=== PATIENT | male | born 1960 | race Hispanic/Latino ===

== ENCOUNTER 2018-02-01 20:57 | Emergency (ER) | payer OTHER ==
[2018-02-01 21:03] VITALS: RESP 16; TEMP 97.7; O2SAT 97
--- NOTE | 2018-02-01 21:17 | ED PDOC ---
Upper Extremity Pain/Injury Time Seen by Provider: 02/01/18 21:04 Chief Complaint (Nursing): Upper Extremity Problem/Injury Chief Complaint (Provider): right shoulder pain History Per: Patient History/Exam Limitations: no limitations Onset/Duration Of Symptoms: Hrs (18:00 today) Current Symptoms Are (Timing): Still Present Exacerbating Factor(s): Movement Additional Complaint(s): Casey Lama is a 57 year old male, with a past medical history of pre- diabetes, who presents to the emergency department complaining of a sudden right shoulder pain onset at 18:00 today. Patient states he was shoveling snow from the back of his pickup truck when the pain suddenly started. He rates the pain a 3/10 at rest but states it worsens with movement to a 10/10. He denies any previous injuries or surgeries to shoulder. He took x2 Aleve for pain, last dose x40 min prior to arrival. Patient is right hand dominant. He denies any numbness or tingling, chest pain, shortness of breath, nausea, vomit, diarrhea, abdominal pain, fever or chills. No further medical complaints. PMD: In [place]. Past Medical History Reviewed: Historical Data, Nursing Documentation, Vital Signs Vital Signs: Last Vital Signs Temp 97.7 F 02/01/18 21:00 Pulse 73 02/01/18 21:00 Resp 16 02/01/18 21:00 BP 166/90 H 02/01/18 21:00 Pulse Ox 97 02/01/18 21:00 - Medical History PMH: Diabetes (pre) - Surgical History Surgical History: No Surg Hx - Family History Family History: States: Unknown Family Hx - Social History Current smoker - smoking cessation education provided: Yes (Cigars daily) Alcohol: Social Drugs: Denies - Home Medications Home Medications: Ambulatory Orders Medication Instructions Recorded Acetaminophen [Acetaminophen 8 650 mg PO Q8 PRN #21 tablet.er 02/01/18 Hour] Cyclobenzaprine [Cyclobenzaprine 10 mg PO Q8 PRN #12 tab 02/01/18 HCl] Meloxicam [Mobic] 15 mg PO DAILY PRN #10 tab 02/01/18 - Allergies Allergies/Adverse Reactions: Allergies Allergy/AdvReac Type Severity Reaction Status Date / Time No Known Allergies Allergy Verified 02/01/18 21:00 Review of Systems ROS Statement: Except As Marked, All Systems Reviewed And Found Negative Constitutional: Negative for: Fever, Chills Cardiovascular: Negative for: Chest Pain Respiratory: Negative for: Shortness of Breath Gastrointestinal: Negative for: Nausea, Vomiting, Abdominal Pain, Diarrhea Musculoskeletal: Positive for: Shoulder Pain (right) Physical Exam - Reviewed Nursing Documentation Reviewed: Yes Vital Signs Reviewed: Yes - Physical Exam Comments: GENERAL APPEARANCE: Patient is awake, alert, oriented x 3, in no acute distress. Resting comfortably. SKIN: Warm, dry; (-) cyanosis. NECK: Supple, FROM (-) tenderness ENT: Mucus membranes moist. Airway patent, (-) stridor. CHEST AND RESPIRATORY: (-) rales, (-) rhonchi, (-) wheezes; breath sounds equal bilaterally. Respirations even and nonlabored. HEART AND CARDIOVASCULAR: (-) irregularity SHOULDER: (+) Tenderness to anterior right shoulder and proximal right humerus. No AC joint tenderness or deformity, no clavicle tenderness. (-) swelling, (-) ecchymosis. (-) Crepitus, effusion, erythema or warmth. (-) distal neurovascular deficit. Elbow, wrist, hand and digits: (-) tenderness with full ROM. NEURO AND PSYCH: Mental status as above. 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 Gait: steady. Speech: clear. (-) facial asymmetry - ECG O2 Sat by Pulse Oximetry: 97 (RA) Pulse Ox Interpretation: Normal Medical Decision Making Medical Decision Making: Time: 21:05 Initial Impression: Acute shoulder pain r/o fracture Initial Plan: --Ultram 50 mg PO (not driving) --Shoulder right [RAD] --Reevaluation 2209 Shoulder XR: (-) fracture (-) dislocation as read by Neal VASQUEZ. Patient notified that official radiology reading is still pending and that he would be notified of any discrepancies via phone within 24-48 hours. Repeat BP: 148/86 On re-evaluation, patient reports improvement of symptoms. On exam, patient remains AAOx3, in no acute distress. Lungs clear to auscultation, cardiac RRR, repeat neuro exam shows no focal findings. Vitals stable. Lab/Diagnostic results d/w the patient in great detail. Diagnosis of acute shoulder pain/sprain d/w the patient. Based on history, exam and diagnostic results, plan will be for outpatient follow up with PMD/ortho. Patient instructed to follow-up with pmd / referral provided / the clinic in 1- 2 days without fail. Advised to take medication as prescribed. Return to the emergency room at any time for any new or worsening symptoms. Patient states he fully agrees with and understands discharge instructions. States that he agrees with the plan and disposition. Verbalized and repeated discharge instructions and plan. I have given the patient opportunity to ask any additional questions. Scribe Attestation: Documented by Stefan Choudhary, acting as a scribe for Maura De Jesus PA-C Provider Scribe Attestation: All medical record entries made by the Scribe were at my direction and personally dictated by me. I have reviewed the chart and agree that the record accurately reflects my personal performance of the history, physical exam, medical decision making, and the department course for this patient. I have also personally directed, reviewed, and agree with the discharge instructions and disposition. Disposition - Clinical Impression Clinical Impression: Acute shoulder pain, Sprain of shoulder - Patient ED Disposition Is Patient to be Admitted: No Counseled Patient/Family Regarding: Studies Performed, Diagnosis, Need For Followup, Rx Given - Disposition Referrals: Tory Long MD [Staff Provider] - primary, doctor [Other] Disposition: Routine/Home Disposition Time: 22:15 Condition: STABLE Additional Instructions: The emergency medical care you received today was directed at your acute symptoms. If you were prescribed any medication, please fill it and take as directed. It may take several days for your symptoms to resolve. Return to the Emergency Department if your symptoms worsen, do not improve, or if you have any other problems. Please contact your doctor in 2 days for re-evaluation and follow up / or call one of the physicians/clinics you have been referred to that are listed on the Patient Visit Information form that is included in your discharge packet. Bring any paperwork you were given at discharge with you along with any medications you are taking to your follow up visit. Our treatment cannot replace ongoing medical care by a primary care provider (PCP) outside of the emergency department. Prescriptions: Acetaminophen [Acetaminophen 8 Hour] 650 mg PO Q8 PRN #21 tablet.er PRN Reason: Pain, Moderate (4-7) Cyclobenzaprine [Cyclobenzaprine HCl] 10 mg PO Q8 PRN #12 tab PRN Reason: Muscle Spasm Meloxicam [Mobic] 15 mg PO DAILY PRN #10 tab PRN Reason: Pain, Moderate (4-7) Instructions: Shoulder Sprain, Shoulder Pain (DC) Forms: [employer] (Gu[place]ian) Print Language: LATVIAN - POA Present On Arrival: None
[2018-02-01 22:38] VITALS: BP 148/86; PULSE 78
--- NOTE | 2018-02-02 09:41 | RAD ---
Date of service: 02/01/2018 PROCEDURE: Radiographs of the Right Shoulder HISTORY: joint pain COMPARISON: No prior. FINDINGS: BONES: No acute fracture or destructive bony lesion identified. JOINTS: No subluxation or dislocation. Degenerative cortical sclerosis appreciate the acromioclavicular joint with inferior as well superior osteophyte is appreciated mild in severity. Glenohumeral joint appears unremarkable. SOFT TISSUES: Normal. OTHER FINDINGS: None. IMPRESSION: No acute fracture or dislocation right shoulder. Limited degenerative changes are seen at the acromioclavicular joint with glenohumeral joint unremarkable.
== END 2018-02-01 22:38 | disposition home or self-care (01) ==
LOC: H.ER 20:57
DX: M25.511 Pain in right shoulder (principal); S43.401A Unspecified sprain of right shoulder joint, initial encounter; X50.9XXA Other and unspecified overexertion or strenuous movements or postures, initial encounter; Y92.89 Other specified places as the place of occurrence of the external cause